=== PATIENT | female | born 1990 | race Caucasian/White ===

== ENCOUNTER 2017-07-19 06:51 | Inpatient (IN) | payer OTHER ==
[~2017-07-19] VITALS: Ht 157.5 cm; Wt 77.5 kg
[~2017-07-19 06:51] MED LIST: FERR27TA PO; PREN1TAB17 PO
[2017-07-19 09:43] VITALS: BP 104/71; RESP 20
[2017-07-19] MEDS ORDERED: ONDANSETRON 4 MG INJ IV PRN (10:00)
[2017-07-19] MEDS ORDERED: NACL 0.9% 3 ML SYG IV SCH (10:00)
[2017-07-19] MEDS ORDERED: HYDROCODONE/APAP (5/325) TAB PO PRN (10:00)
[2017-07-19 10:43] VITALS: Ht 157.5 cm; Wt 77.5 kg
[2017-07-19 11:45] LABS: BASOPHILS % 0.5 % (0.0-2.0); EOSINOPHILS # 0.1 10^3/ul (0.0-0.5); EOSINOPHILS % 2.2 % (0.0-7.0); HEMATOCRIT 40.8 % (37.0-47.0); HEMOGLOBIN 13.2 g/dl (12.0-16.0); LYMPHOCYTES # 1.5 10^3/ul (0.8-2.9); LYMPHOCYTES % 23.4 % (15.0-51.0); MEAN CORPUSCULAR HEMOGLOBIN 27.2 pg (29.0-33.0); MEAN CORPUSCULAR HGB CONC 32.4 g/dl (32.0-37.0); MONOCYTE # 0.5 10^3/ul (0.3-0.9); MONOCYTES % 7.1 % (0.0-11.0); NEUTROPHIL # 4.2 10^3/ul (1.6-7.5); NEUTROPHILS % 66.3 % (39.0-77.0); PLATELET COUNT 240 10^3/UL (140-415); RED BLOOD COUNT 4.86 10^6/ul (4.20-5.40); RED CELL DISTRIBUTION WIDTH 13.3 % (11.5-14.5); WHITE BLOOD COUNT 6.3 10^3/ul (4.8-10.8)
[2017-07-19 12:07] LABS: ALBUMIN 3.8 g/dl (3.3-4.9); ALBUMIN/GLOBULIN RATIO 1.18; BILIRUBIN,INDIRECT 0.2 mg/dl (0-1.1); BILIRUBIN,TOTAL 0.2 mg/dl (0.2-1.3); CALCIUM 8.3 mg/dl (8.4-10.2); CREATININE 0.75 mg/dl (0.44-1.00); POTASSIUM 4.4 mmol/L (3.5-5.1)
--- NOTE | 2017-07-19 12:30 | RADRPT ---
PROCEDURE: US right upper quadrant abdomen. CLINICAL INDICATION: Abdominal pain TECHNIQUE: Multiple real-time images were acquired of the patient's right upper quadrant abdomen utilizing a high resolution transducer. COMPARISON: None FINDINGS: The liver demonstrates normal echogenicity and normal size without focal lesions. Patent portal vein . Nondistended gallbladder contains multiple stones. No pericholecystic fluid or gallbladder wall th ickening. No intrahepatic or extrahepatic biliary dilatation. The common bile duct measures 3.6 mm in maximal dimension. The visualized portions of the pancreas are normal. The right kidney is norm al size with normal echogenicity and morphology. The right kidney measures 10.2 cm. No hydronephro sis or perinephric fluid collections. There are no areas of increased echogenicity to suggest nephr olithiasis. Normal caliber aorta and IVC. No peritoneal free fluid. IMPRESSION: Cholelithiasis without ultrasound evidence of cholecystitis. RPTAT:AAJJ Physician Gely Date Time Electronically viewed and signed by Physician Gely on 07/19/2017 12:30 /
[2017-07-19] MEDS ORDERED: MIRT15TA PO (12:34)
--- NOTE | 2017-07-19 13:39 | HP ---
Date/Time of Note Date/Time of Note DATE: 07/19/17 TIME: 13:36 Assessment/Plan VTE Prophylaxis VTE Prophylaxis Intervention: LMWH Lines/Catheters IV [facility]ter Type (from [facility] Saline Lock Assessment/Plan Chief Complaint/Hosp Course 26 yo female with symptomatic cholelithiasis, oustide imaging showing cholecytitis, US here showing stones only - Surgery per Dr Snider - Will hold further abx for now - Given transaminitis will check viral serologies - LMWH ppx Problems: HPI/ROS Admit Date/Time Admit Date/Time Jul 19, 2017 at 09:21 Hx of Present Illness 26 yo female with h/o cholelithaiasis who was transferred from [facility] for consideration of cholecystectomy Patient has had symptomatic gall stones for months. Symptoms were tolerable with occasional pains after fatty foods. Yesterday, pain was very severe prompting ED visit. There on US found to have cholelithiasis and transferred here. She has been afebrile, HD stable. Zosyn was given there. Labs notable only for mild elevation in transaminases. Here pain is resolved, was sleeping at time of my interview PMH/Family/Social Past Medical History Medical History: no pertinent history Past Surgical History Past Surgical Hx: no surgical history Family History Significant Family History: no pertinent family hx Social History Alcohol Use: none Smoking Status: Former smoker Drug Use: none Exam/Review of Systems Vital Signs Vitals Vital Signs Date Time Temp Pulse Resp B/P Pulse Ox O2 Delivery O2 Flow Rate FiO2 07/19/17 09:43 98.6 69 20 104/71 98 Exam Exam RUQ with mild TTP, negative ghosh Constitutional: alert, oriented, well developed Psych: nl mood/affect, no complaints Head: atraumatic, normocephalic Eyes: EOMI, PERRL, nl conjunctiva, nl lids, nl sclera ENMT: nl external ears & nose, nl lips & teeth, nl nasal mucosa & septum Neck: non-tender, supple Respiratory: clear to auscultation, normal air movement Cardiovascular: nl pulses, regular rate and rhythm Gastrointestinal: nl liver, spleen, non-tender, soft Musculoskeletal: nl extremities to inspection Extremities: normal pulses Neurological: EDITORIAL CLERK II-XII intact, nl mental status, nl speech, nl strength Skin: nl turgor, No rash or lesions Lymph: nl lymph nodes Labs Result Diagram: 07/19/17 1136 07/19/17 1136 Medications Medications Current Medications Ondansetron HCl (Zofran Inj) 4 mg Q6H PRN IV NAUSEA AND/OR VOMITING; Start 07/19/17 at 10:00 Acetaminophen/ Hydrocodone Bitart ([place] (5/325)) 2 tab Q6H PRN PO SEVERE PAIN LEVEL 7-10; Start 07/19/17 at 10:00 Enoxaparin Sodium (Lovenox) 30 mg DAILY SC ; Start 07/20/17 at 09:00 ANMOL ANAYA MD Jul 19, 2017 13:39
[2017-07-19] MEDS ORDERED: morphine 2 MG INJ IV PRN (14:00)
[2017-07-19 14:01] VITALS: BP 106/57; RESP 18
[2017-07-19] MEDS: SOD CHLORIDE 0.45% 1,000 ML IV SCH (15:32)
--- NOTE | 2017-07-19 17:56 | CONS ---
Date/Time of Note Date/Time of Note DATE: 07/19/17 TIME: 17:29 Assessment/Plan Assessment/Plan Chief Complaint/Hosp Course 1. Symptomatic cholelithiasis with ?cholecystitis: Min elevated liver enzymes: recurrent episode; spoke with patient regarding surgical options, patient considering surgery -poss lap urbano -pain management -clear liquids for now 2. Transaminitis: improving -as above 3. Hypocalcemia: nutritional vs. inflammation -nutritional optimization -as above 4. UTI: -abx per sensitivity -encourage frequent bladder emptying Thank you. Patient seen and examined in collaboration with Dr. Dane Snider. Problems: Consultation Date/Type/Reason Admit Date/Time Jul 19, 2017 at 09:21 Date of Consultation: Jul 19, 2017 Type of Consultation: surgical Reason for Consultation Gallstones Referring Provider: ANMOL ANAYA MD Hx of Present Illness Lili Bhat is a 26 yo woman who was transferred to [facility] with complaints of abdominal pain, predominantly in the right upper quadrant described as strong and constant. She reports that the pain is similar in character to her pain in the past when she was diagnosed with gallstones. Associated symptoms include one time episode of vomiting nonbloody emesis. She denies fevers, chills, congested cough, diarrhea, dysuria, chest pain, palpitations, headache or dizziness. US abdomen show gallstones with pericholecystic fluid and gallbladder wall thickening at [facility]. Her ultrasound at [facility] did not show any wall thickening or pericholecystic fluid. General surgery was asked to consult. Constitutional: No diaphoresis, No febrile Eyes: No visual change ENT: No congestion, No pain Respiratory: No cough, No shortness of breath Cardiovascular: No chest pain, No lightheadedness Gastrointestinal: nausea, pain, vomiting Genitourinary: No dysuria, No hematuria Musculoskeletal: neck pain Skin: No bruising, No rash Neurologic: No dizziness, No headache Psychological: nl mood/affect, no complaints Past Medical History Obesity gallstones Past Surgical History Past Surgical Hx: no surgical history Social History Alcohol Use: none Smoking Status: Former smoker Drug Use: none Exam/Review of Systems Vital Signs Vitals Vital Signs Date Time Temp Pulse Resp B/P Pulse Ox O2 Delivery O2 Flow Rate FiO2 07/19/17 14:01 98.5 60 18 106/57 100 Exam Constitutional: alert, oriented Psych: nl mood/affect Head: atraumatic, normocephalic Eyes: nl conjunctiva ENMT: mucosa pink and moist, nl nasal mucosa & septum Neck: non-tender, supple Respiratory: normal air movement Cardiovascular: nl pulses, regular rate and rhythm Gastrointestinal: soft, tender (min), No rebound or guarding Musculoskeletal: nl extremities to inspection, nl gait and stance Neurological: nl mental status, nl speech, nl strength Skin: No rash or lesions Results Result Diagram: 07/19/17 1136 07/19/17 1136 Results 24 hrs Laboratory Tests Test 07/19/17 11:36 White Blood Count 6.3 # Red Blood Count 4.86 # Hemoglobin 13.2 # Hematocrit 40.8 # Mean Corpuscular Volume 84.0 Mean Corpuscular Hemoglobin 27.2 L Mean Corpuscular Hemoglobin Concent 32.4 Red Cell Distribution Width 13.3 Platelet Count 240 Mean Platelet Volume 10.0 Neutrophils % 66.3 Lymphocytes % 23.4 Monocytes % 7.1 Eosinophils % 2.2 Basophils % 0.5 Nucleated Red Blood Cells % 0.0 Neutrophils # 4.2 Lymphocytes # 1.5 Monocytes # 0.5 Eosinophils # 0.1 Basophils # 0.0 Nucleated Red Blood Cells # 0.0 Sodium Level 142 Potassium Level 4.4 Chloride Level 110 Carbon Dioxide Level 26 Anion Gap 10 Blood Urea Nitrogen 9 Creatinine 0.75 Glucose Level 95 Calcium Level 8.3 L Total Bilirubin 0.2 Direct Bilirubin 0.00 Indirect Bilirubin 0.2 Aspartate Amino Transf (AST/SGOT) 106 H Alanine Aminotransferase (ALT/SGPT) 73 H Alkaline Phosphatase 86 Total Protein 7.0 Albumin 3.8 Globulin 3.20 Albumin/Globulin Ratio 1.18 Serum HCG, Qualitative NEGATIVE Medications Medications Current Medications Ondansetron HCl (Zofran Inj) 4 mg Q6H PRN IV NAUSEA AND/OR VOMITING; Start 07/19/17 at 10:00 Acetaminophen/ Hydrocodone Bitart ([place] (5/325)) 2 tab Q6H PRN PO SEVERE PAIN LEVEL 7-10; Start 07/19/17 at 10:00 Enoxaparin Sodium (Lovenox) 30 mg DAILY SC ; Start 07/20/17 at 09:00 Morphine Sulfate 2 mg 2 mg Q4H PRN IV pain; Start 07/19/17 at 14:00 Sodium Chloride (1/2 NS) 1,000 ml @ 75 mls/hr [id number] IV Last administered on 07/19/17t 15:32; Admin Dose 75 MLS/HR; Start 07/19/17 at 15:30; Stop 07/20/17 at 15:12 MIKEL VELÁZQUEZ NP Jul 19, 2017 17:39
[2017-07-19 20:30] VITALS: BP 94/51; RESP 20
[2017-07-19] MEDS: PIPER-TAZO 2.25 GM (PMX) 50 ML IVPB SCH (22:32)
[2017-07-20 02:40] VITALS: BP 93/54; RESP 20
[2017-07-20] MEDS: SOD CHLORIDE 0.45% 1,000 ML IV SCH (05:17)
[2017-07-20 05:23] LABS: HAAIG REFLEX REFLEX FILED
[2017-07-20 05:33] LABS: BASOPHILS % 0.6 % (0.0-2.0); EOSINOPHILS # 0.2 10^3/ul (0.0-0.5); HEMATOCRIT 39.3 % (37.0-47.0); HEMOGLOBIN 12.5 g/dl (12.0-16.0); LYMPHOCYTES # 1.9 10^3/ul (0.8-2.9); LYMPHOCYTES % 30.8 % (15.0-51.0); MEAN CORPUSCULAR HEMOGLOBIN 26.4 pg (29.0-33.0); MEAN CORPUSCULAR HGB CONC 31.8 g/dl (32.0-37.0); MEAN CORPUSCULAR VOLUME 83.1 fl (82.0-101.0); MEAN PLATELET VOLUME 10.3 fl (7.4-10.4); MONOCYTE # 0.5 10^3/ul (0.3-0.9); MONOCYTES % 7.2 % (0.0-11.0); NEUTROPHIL # 3.6 10^3/ul (1.6-7.5); NEUTROPHILS % 57.8 % (39.0-77.0); PLATELET COUNT 239 10^3/UL (140-415); RED BLOOD COUNT 4.73 10^6/ul (4.20-5.40); RED CELL DISTRIBUTION WIDTH 13.7 % (11.5-14.5); WHITE BLOOD COUNT 6.3 10^3/ul (4.8-10.8)
[2017-07-20] MEDS: PIPER-TAZO 2.25 GM (PMX) 50 ML IVPB SCH ×2 (05:39→14:21)
[2017-07-20 05:46] LABS: ALBUMIN 3.2 g/dl (3.3-4.9); ALBUMIN/GLOBULIN RATIO 0.94; BILIRUBIN,INDIRECT 0.3 mg/dl (0-1.1); BILIRUBIN,TOTAL 0.3 mg/dl (0.2-1.3); CALCIUM 8.7 mg/dl (8.4-10.2); CREATININE 0.79 mg/dl (0.44-1.00); POTASSIUM 3.9 mmol/L (3.5-5.1); TOTAL PROTEIN 6.6 g/dl (6.1-8.1)
[2017-07-20 05:50] LABS: INR 0.99; PROTIME 13.1 Sec (12.2-14.2)
[2017-07-20 07:29] LABS: HEPATITIS B CORE ANTIBODY NEGATIVE (NEGATIVE)
[2017-07-20 08:00] VITALS: BP 107/64; RESP 19
[2017-07-20] MEDS ORDERED: ENOXAPARIN 30 MG/0.3 ML SYG SC SCH (09:00)
[2017-07-20 12:11] LABS: ADD UMIC YES; UR ASCORBIC ACID NEGATIVE (NEGATIVE); UR BILIRUBIN (Dip) NEGATIVE (NEGATIVE); UR BLOOD (Dip) 2+ mg/dL (NEGATIVE); UR CLARITY CLEAR (CLEAR); UR COLOR STRAW (YELLOW); UR GLUCOSE (Dip) NEGATIVE (NEGATIVE); UR KETONES (Dip) NEGATIVE (NEGATIVE); UR LEUKOCYTE ESTERASE (Dip) NEGATIVE Leu/ul (NEGATIVE); UR NITRITE (Dip) NEGATIVE (NEGATIVE); UR RBC 96 /HPF (0-5); UR SPECIFIC GRAVITY (Dip) 1.006 (1.003-1.030); UR SQUAMOUS EPITHELIAL CELL FEW /HPF (FEW); UR TOTAL PROTEIN (Dip) NEGATIVE (NEGATIVE); UR UROBILINOGEN (Dip) NEGATIVE (NEGATIVE)
--- NOTE | 2017-07-20 13:54 | PDOCDIS ---
Discharge Instructions DIAGNOSIS Discharge Diagnosis Cholelithiasis CONDITION Patient Condition: Fair HOME CARE INSTRUCTIONS: Diet Instructions: Low Fat /Cholesterol FOLLOW UP/APPOINTMENTS Follow-up Plan Make an appointment to discuss gall bladder surgery with Dr Snider Return to the hosptial if you feel any pain in your belly, fever, or any other concerning symptoms ANMOL ANAYA MD Jul 20, 2017 13:54
--- NOTE | 2017-07-20 13:57 | DS ---
Date/Time of Note Date/Time of Note DATE: 07/20/17 TIME: 13:54 Discharge Summary Admission/Discharge Info Admit Date/Time Jul 19, 2017 at 09:21 Discharge Date/Time Discharge Diagnosis Cholelithiasis Hx of Present Illness 26 yo female with h/o cholelithaiasis who was transferred from [facility] for consideration of cholecystectomy Patient has had symptomatic gall stones for months. Symptoms were tolerable with occasional pains after fatty foods. Yesterday, pain was very severe prompting ED visit. There on US found to have cholelithiasis and transferred here. She has been afebrile, HD stable. Zosyn was given there. Labs notable only for mild elevation in transaminases. Here pain is resolved, was sleeping at time of my interview Hospital Course Patient underwent RUQ ultrasound which showed cholelithiasis but no evidence of cholecystitis. She had no pain while admitted here. She felt completely normal with no symptoms at all. She had no fever or lab evidence of infection. Her symptoms are likely 2/2 biliary colic from her gall stones. She was offered cholecystectomy, but the patient was extremely reluctant to have this done now and requested to be discharged. She understands that she still has gall stones and that she will likely continue to have symptoms and that she may develop cholangitis, etc. She accepts this risk and wishes to be discharged. She will follow up with surgery in clinic to further discuss possible cholecystectomy Home Meds Reported Medications Mirtazapine* (Remeron*) 15 Mg Tablet, 15 MG PO HS, TAB 07/19/17 Ferrous Sulfate (Iron) 1 Tab Tablet, 1 TAB PO DAILY 12/30/13 Vit-Iron Fumarate-FA ( Tablet) 1 Each Tablet, 1 EACH PO DAILY 12/30/13 Follow-up Plan Make an appointment to discuss gall bladder surgery with Dr Snider Return to the hosptial if you feel any pain in your belly, fever, or any other concerning symptoms Primary Care Provider Not On Staff Doctor Pending Labs Laboratory Tests Test 07/19/17 21:00 07/20/17 04:43 Urine Color STRAW (YELLOW) Urine Clarity CLEAR (CLEAR) Urine pH 7.0 (5.0-9.0) Urine Specific [place] 1.006 (1.003-1.030) Urine Ketones NEGATIVEmg/dL (NEGATIVE) Urine Nitrite NEGATIVEmg/dL (NEGATIVE) Urine Bilirubin NEGATIVEmg/dL (NEGATIVE) Urine Urobilinogen NEGATIVEmg/dL (NEGATIVE) Urine Leukocyte Esterase NEGATIVELeu/ul (NEGATIVE) Urine Microscopic RBC 96/HPF (0-5) Urine Microscopic WBC 0/HPF (0-5) Urine Squamous Epithelial Cells FEW/HPF (FEW) Urine Hemoglobin 2+mg/dL (NEGATIVE) Urine Glucose NEGATIVEmg/dL (NEGATIVE) Urine Total Protein NEGATIVEmg/dl (NEGATIVE) White Blood Count 6.310^3/ul (4.8-10.8) Red Blood Count 4.7310^6/ul (4.20-5.40) Hemoglobin 12.5g/dl (12.0-16.0) Hematocrit 39.3% (37.0-47.0) Mean Corpuscular Volume 83.1fl (82.0-101.0) Mean Corpuscular Hemoglobin 26.4pg (29.0-33.0) Mean Corpuscular Hemoglobin Concent 31.8g/dl (32.0-37.0) Red Cell Distribution Width 13.7% (11.5-14.5) Platelet Count 39114^3/UL (140-415) Mean Platelet Volume 10.3fl (7.4-10.4) Neutrophils % 57.8% (39.0-77.0) Lymphocytes % 30.8% (15.0-51.0) Monocytes % 7.2% (0.0-11.0) Eosinophils % 3.0% (0.0-7.0) Basophils % 0.6% (0.0-2.0) Nucleated Red Blood Cells % 0.0/100WBC (0.0-0.0) Neutrophils # 3.610^3/ul (1.6-7.5) Lymphocytes # 1.910^3/ul (0.8-2.9) Monocytes # 0.510^3/ul (0.3-0.9) Eosinophils # 0.210^3/ul (0.0-0.5) Basophils # 0.010^3/ul (0.0-0.1) Nucleated Red Blood Cells # 0.010^3/ul (0.0-0.0) Prothrombin Time 13.1Sec (12.2-14.2) Prothrombin Time Ratio 1.0 INR International Normalized Ratio 0.99 Sodium Level 140mmol/L (135-144) Potassium Level 3.9mmol/L (3.5-5.1) Chloride Level 109mmol/L (97-110) Carbon Dioxide Level 28mmol/L (21-31) Anion Gap 7 (8-16) Blood Urea Nitrogen 7mg/dl (7-20) Creatinine 0.79mg/dl (0.44-1.00) Glucose Level 91mg/dl (70-220) Calcium Level 8.7mg/dl (8.4-10.2) Total Bilirubin 0.3mg/dl (0.2-1.3) Direct Bilirubin 0.00mg/dl (0.00-0.20) Indirect Bilirubin 0.3mg/dl (0-1.1) Aspartate Amino Transf (AST/SGOT) 64IU/L (15-46) Alanine Aminotransferase (ALT/SGPT) 64IU/L (13-69) Alkaline Phosphatase 81IU/L (42-121) Total Protein 6.6g/dl (6.1-8.1) Albumin 3.2g/dl (3.3-4.9) Globulin 3.40g/dl (1.3-3.2) Albumin/Globulin Ratio 0.94 Hepatitis B Surface Antigen NEGATIVE (NEGATIVE) Hepatitis B Core Total Antibody NEGATIVE (NEGATIVE) Hepatitis C Antibody NEGATIVE (NEGATIVE) ANMOL ANAYA MD Jul 20, 2017 13:57
[2017-07-20 14:00] VITALS: BP 108/64; RESP 18
--- NOTE | 2017-07-20 14:09 | PN ---
Date/Time of Note Date/Time of Note DATE: 07/20/17 TIME: 14:05 Assessment/Plan Lines/Catheters IV [facility] (from [facility]): Peripheral IV Assessment/Plan Chief Complaint/Hosp Course 1. Symptomatic cholelithiasis with ?cholecystitis: Min elevated liver enzymes: recurrent episode; spoke with patient regarding surgical options, patient refusing surgery at this time -lap urbano recommended as outpatient 2. Transaminitis: improving -as above 3. Hypocalcemia: nutritional vs. inflammation -nutritional optimization -as above 4. UTI: -abx per sensitivity -encourage frequent bladder emptying Thank you. Patient seen and examined in collaboration with Dr. Dane Snider. Problems: Subjective 24 Hr Interval Summary Feels much better. No c/o abdominal pain. +bowel function. Refusing to have surgery. Transaminases improved. No fevers, chills, sob, congested cough, cote, cp , palpitations, n/v/d/dysuria. Exam/Review of Systems Vital Signs Vitals Vital Signs Date Time Temp Pulse Resp B/P Pulse Ox O2 Delivery O2 Flow Rate FiO2 07/20/17 08:00 98.5 69 19 107/64 98 Intake and Output 07/19/17 07/19/17 07/20/17 15:00 23:00 07:00 Intake Total 150 ml 1275 ml Balance 150 ml 1275 ml Exam Free Text/Dictation Constitutional: alert, oriented Psych: nl mood/affect Head: atraumatic, normocephalic Eyes: nl conjunctiva ENMT: mucosa pink and moist, nl nasal mucosa & septum Neck: non-tender, supple Respiratory: normal air movement Cardiovascular: nl pulses, regular rate and rhythm Gastrointestinal: soft, nontender, No rebound or guarding Musculoskeletal: nl extremities to inspection, nl gait and stance Neurological: nl mental status, nl speech, nl strength Skin: No rash or lesions Results Result Diagram: 07/20/17 0443 07/20/17 0443 MIKEL VELÁZQUEZ NP Jul 20, 2017 14:09
== END 2017-07-20 16:00 | disposition home or self-care (01) | DRG 445 ==
LOC: MS1 09:21
PROVIDERS: ADMIT Hospitalist; ATTEND Hospitalist
DX: K80.20 Calculus of gallbladder without cholecystitis without obstruction (principal); N39.0 Urinary tract infection, site not specified; E83.51 Hypocalcemia; R74.0 Nonspecific elevation of levels of transaminase and lactic acid dehydrogenase [LDH]
CPT/HCPCS: 76705; 80053; 81001; 84703; 85025; 85610; 86704; 86709; 86803; 87086; 87340; J1650; J2543

== ENCOUNTER 2017-07-30 06:12 | Emergency (ER) | payer OTHER ==
[~2017-07-30] VITALS: Ht 157.5 cm; Wt 70.0 kg
[~2017-07-30 06:12] MED LIST changes: +MIRT15TA PO
[2017-07-30 06:14] VITALS: Ht 157.5 cm; Wt 70.0 kg
[2017-07-30] MEDS ORDERED: KETOROLAC 15 MG INJ IV STA (07:08)
[2017-07-30] MEDS ORDERED: ONDANSETRON 4 MG INJ IV STA (07:08)
[2017-07-30] MEDS ORDERED: SOD CHLORIDE 0.9% 500 ML IV STA (07:08)
[2017-07-30 07:53] LABS: BASOPHILS % 0.3 % (0.0-2.0); EOSINOPHILS # 0.1 10^3/ul (0.0-0.5); EOSINOPHILS % 1.1 % (0.0-7.0); HEMATOCRIT 42.7 % (37.0-47.0); HEMOGLOBIN 13.9 g/dl (12.0-16.0); LYMPHOCYTES # 1.4 10^3/ul (0.8-2.9); LYMPHOCYTES % 15.5 % (15.0-51.0); MEAN CORPUSCULAR HGB CONC 32.6 g/dl (32.0-37.0); MEAN CORPUSCULAR VOLUME 82.9 fl (82.0-101.0); MEAN PLATELET VOLUME 10.3 fl (7.4-10.4); MONOCYTE # 0.5 10^3/ul (0.3-0.9); MONOCYTES % 5.1 % (0.0-11.0); NEUTROPHIL # 6.9 10^3/ul (1.6-7.5); NEUTROPHILS % 77.3 % (39.0-77.0); PLATELET COUNT 281 10^3/UL (140-415); RED BLOOD COUNT 5.15 10^6/ul (4.20-5.40); RED CELL DISTRIBUTION WIDTH 13.1 % (11.5-14.5); WHITE BLOOD COUNT 8.9 10^3/ul (4.8-10.8)
[2017-07-30 07:58] LABS: ADD UMIC NO; UR ASCORBIC ACID 40 mg/dL (NEGATIVE); UR BILIRUBIN (Dip) NEGATIVE (NEGATIVE); UR BLOOD (Dip) NEGATIVE (NEGATIVE); UR CLARITY CLEAR (CLEAR); UR COLOR YELLOW (YELLOW); UR GLUCOSE (Dip) NEGATIVE (NEGATIVE); UR KETONES (Dip) NEGATIVE (NEGATIVE); UR LEUKOCYTE ESTERASE (Dip) NEGATIVE Leu/ul (NEGATIVE); UR NITRITE (Dip) NEGATIVE (NEGATIVE); UR SPECIFIC GRAVITY (Dip) 1.024 (1.003-1.030); UR TOTAL PROTEIN (Dip) NEGATIVE (NEGATIVE); UR UROBILINOGEN (Dip) NEGATIVE (NEGATIVE)
[2017-07-30 07:59] LABS: ALBUMIN 4.4 g/dl (3.3-4.9); ALBUMIN/GLOBULIN RATIO 1.25; BILIRUBIN,INDIRECT 0.2 mg/dl (0-1.1); BILIRUBIN,TOTAL 0.2 mg/dl (0.2-1.3); CALCIUM 9.6 mg/dl (8.4-10.2); CREATININE 0.71 mg/dl (0.44-1.00); POTASSIUM 4.6 mmol/L (3.5-5.1); TOTAL PROTEIN 7.9 g/dl (6.1-8.1)
[2017-07-30] MEDS ORDERED: ACET325T33 PO (08:16)
[2017-07-30] MEDS ORDERED: ONDA4TAB14 PO (08:16)
--- NOTE | 2017-07-30 08:17 | RADRPT ---
PROCEDURE: US Abdomen. CLINICAL INDICATION: abdominal pain TECHNIQUE: Multiple real-time images were acquired of the patient's right upper quadrant abdomen a nd retroperitoneum utilizing a high resolution transducer. COMPARISON: US ABDOMEN 07/19/2017 FINDINGS: The liver demonstrates normal echogenicity. The liver is normal in size and no focal solid lesions are seen. The liver measures 17 cm in length. The portal vein is patent with normal direction of devyn w. No intrahepatic biliary dilatation is seen. Multiple gallstones and sludge are identified within the gallbladder. There is no pericholecystic f luid or gallbladder wall thickening. The common bile duct measures 6 mm in maximal dimension. The visualized portions of the pancreas are unremarkable. The tail of the pancreas is not seen. No free fluid is identified. The right kidney is normal in size, and demonstrate normal echogenicity and cortical thickness. The right kidney measures 9.8 cm in long dimension. There is no evidence of hydronephrosis. There are no kidney stones. RPTAT: AA IMPRESSION: Multiple calcified stones and sludge within the gallbladder. No evidence of gallbladder wall thicken ing or pericholecystic fluid. Borderline dilated CBD. .Jb Frank MD, Date Time Electronically viewed and signed by .Jb Frank MD, MD on 07/30/2017 08:16 .S/
--- NOTE | 2017-07-30 09:21 | ERD ---
ER Documentation Chief Complaint Date/Time DATE: 07/30/17 TIME: 09:17 Chief Complaint c/o RUQ pain with n/v. Hx of GS. HPI This is a 26-year-old female with history of gallstones presenting to the emergency department complaining of moderate right upper quadrant abdominal pain that radiates to her back for the past 2 days. Patient associates that with nausea, less non-bloody vomiting. She denies any fevers, diarrhea. Patient states that she has been by her primary care physician and working on a scheduled cholecystectomy ROS All systems reviewed and are negative except as per history of present illness. Medications Home Meds Active Scripts Acetaminophen* (Tylenol*) 325 Mg Tablet, 2 TAB PO Q6 Y for PAIN AND OR ELEVATED TEMP, #20 TAB Prov:JOSE J GU PA-C 07/30/17 Ondansetron (Ondansetron Odt) 4 Mg Tab.rapdis, 4 MG PO Q6H Y for NAUSEA AND/OR VOMITING, #20 TAB Prov:JOSE J GU PA-C 07/30/17 Reported Medications Mirtazapine* (Remeron*) 15 Mg Tablet, 15 MG PO HS, TAB 07/19/17 Ferrous Sulfate (Iron) 1 Tab Tablet, 1 TAB PO DAILY 12/30/13 Vit-Iron Fumarate-FA ( Tablet) 1 Each Tablet, 1 EACH PO DAILY 12/30/13 Allergies Allergies: Coded Allergies: No Known Drug Allergy (Verified Allergy, Unknown, 07/30/17) PMhx/Soc History of Surgery: No Anesthesia Reaction: No Hx Neurological Disorder: No Hx Respiratory Disorders: No Hx Cardiac Disorders: No Hx Psychiatric Problems: Yes (anxiety, depression ) Hx Miscellaneous Medical Probl: No (gallstones) Hx Alcohol Use: No Hx Substance Use: No Hx Tobacco Use: No Smoking Status: Never smoker Physical Exam Vitals Vital Signs Date Time Temp Pulse Resp B/P Pulse Ox O2 Delivery O2 Flow Rate FiO2 07/30/17 06:14 98.2 66 18 103/79 100 Physical Exam GENERAL: well-developed/well-nourished, in no apparent distress, non-toxic appearing HENT: NC/AT, moist mucous membranes EYES: Conjunctiva normal NECK: Supple, no lymphadenopathy PULM: CTA bilaterally, no rales, rhonchi, or wheezing heard CV: Normal S1S2, RRR, good capillary refill GI: Soft, non-distended, tender to palpation right upper quadrant Normal bowel sounds, no masses or organomegaly felt on exam No gross peritonitis, no bruits Negative Rovsing, negative Castañeda, negative McBurney's point, Negative CVAT BACK: No masses EXT: No clubbing, cyanosis, or edema NEURO: Alert and Orientated SKIN: Intact, normal turgor PSYCH: Normal mood and mentation Result Diagram: 07/30/1725 07/30/1725 Results 24 hrs Laboratory Tests Test 07/30/17 07:25 White Blood Count 8.910^3/ul Red Blood Count 5.1510^6/ul Hemoglobin 13.9g/dl Hematocrit 42.7% Mean Corpuscular Volume 82.9fl Mean Corpuscular Hemoglobin 27.0pg Mean Corpuscular Hemoglobin Concent 32.6g/dl Red Cell Distribution Width 13.1% Platelet Count 53547^3/UL Mean Platelet Volume 10.3fl Neutrophils % 77.3% Lymphocytes % 15.5% Monocytes % 5.1% Eosinophils % 1.1% Basophils % 0.3% Nucleated Red Blood Cells % 0.0/100WBC Neutrophils # 6.910^3/ul Lymphocytes # 1.410^3/ul Monocytes # 0.510^3/ul Eosinophils # 0.110^3/ul Basophils # 0.010^3/ul Nucleated Red Blood Cells # 0.010^3/ul Urine Color YELLOW Urine Clarity CLEAR Urine pH 6.0 Urine Specific [place] 1.024 Urine Ketones NEGATIVEmg/dL Urine Nitrite NEGATIVEmg/dL Urine Bilirubin NEGATIVEmg/dL Urine Urobilinogen NEGATIVEmg/dL Urine Leukocyte Esterase NEGATIVELeu/ul Urine Hemoglobin NEGATIVEmg/dL Urine Glucose NEGATIVEmg/dL Urine Total Protein NEGATIVEmg/dl Sodium Level 143mmol/L Potassium Level 4.6mmol/L Chloride Level 104mmol/L Carbon Dioxide Level 28mmol/L Anion Gap 16 Blood Urea Nitrogen 12mg/dl Creatinine 0.71mg/dl Glucose Level 100mg/dl Calcium Level 9.6mg/dl Total Bilirubin 0.2mg/dl Direct Bilirubin 0.00mg/dl Indirect Bilirubin 0.2mg/dl Aspartate Amino Transf (AST/SGOT) 18IU/L Alanine Aminotransferase (ALT/SGPT) 41IU/L Alkaline Phosphatase 108IU/L Total Protein 7.9g/dl Albumin 4.4g/dl Globulin 3.50g/dl Albumin/Globulin Ratio 1.25 Lipase 75U/L Current Medications Medications (Trade) Dose Ordered Sig/Singh Route PRN Reason Start Time Stop Time Status Last Admin Dose Admin Sodium Chloride (NS) 500 ml @ 500 mls/hr Q1H STAT IV 07/30/17 07:08 07/30/17 08:07 DC 07/30/17 07:44 Ondansetron HCl (Zofran Inj) 4 mg ONCE STAT IV 07/30/17 07:08 07/30/17 07:09 DC 07/30/17 07:46 Ketorolac Tromethamine (Toradol) 15 mg ONCE STAT IV 07/30/17 07:08 07/30/17 07:09 DC 07/30/17 07:45 Procedures/MDM 26-year-old female presents to the emergency department with cholelithiasis, I doubt patient has sepsis, choledocholithiasis, cholecystitis or cholangitis, pancreatitis or other acute abdomen conditions due to physical examination and diagnostic testing. Patient appears well and nontoxic appearing with stable vital signs. Lab work was drawn. CBC did not show any evidence of leukocytosis or anemia. CMP did not show any evidence of renal, liver, or electrolyte abnormalities. Lipase was normal. UA did not show any evidence of hemoglobin or urinary tract infection. Gallbladder ultrasound: Multiple calcified stones and sludge within the gallbladder. No evidence of gallbladder wall thickening or pericholecystic fluid. Borderline dilated CBD at 6mm Diagnostic testing and instructions were given to patient. Pain control and antiemetic prescriptions, Tylenol and Zofran were provided for outpatient self- care. Discussed with patient to follow-up with primary care for GI referral. Precautions were given to return to the ER for fever, intractable pain, increased vomiting, and other worsening signs and symptoms. Patient expressed agreement and understanding of this plan. Departure Diagnosis: Primary Impression: Cholelithiasis Condition: Stable Patient Instructions: Gallstones Additional Instructions: Visite a medrano ace antonio para un EXAMEN.Regrese a estas instalaciones si no se mejora ernesto esperbamos o ernesto le dijimos. [place] toda la medicina kasia y ernesto se le indic. Regrese a estas instalaciones si no se mejora ernesto esperbamos o ernesto le dijimos. JOSE J GU PA-C Jul 30, 2017 09:21
[2017-07-30 09:31] VITALS: BP 128/85; PULSE 71; RESP 18; TEMP 98.5
== END 2017-07-30 09:32 | disposition home or self-care (01) ==
LOC: FTE 06:12
DX: K80.20 Calculus of gallbladder without cholecystitis without obstruction (principal); R11.2 Nausea with vomiting, unspecified
CPT/HCPCS: 36415; 76705; 80053; 81003; 83690; 85025; 96374; 96375; J1885; J2405; J7040; Z7502

== ENCOUNTER 2017-10-31 11:55 | Emergency (ER) | END 2017-10-31 15:26 | disposition home or self-care (01) ==

== ENCOUNTER 2018-04-03 06:58 | Day surgery (SDC) | END 2018-04-03 12:35 | disposition home or self-care (01) ==